=== PATIENT | female | born 1970 | race Caucasian/White ===

== ENCOUNTER 2017-10-29 13:05 | Emergency (ER) | payer OTHER ==
[~2017-10-29] VITALS: Ht 170.2 cm; Wt 71.4 kg
[2017-10-29] MEDS ORDERED: XANA0.25 PO (13:20)
[2017-10-29] MEDS ORDERED: XANA1TAB2 PO (13:20)
[2017-10-29] MEDS ORDERED: DEXI30CA2 PO (13:20)
[2017-10-29 14:13] LABS: BASO # 0.1 10^3/uL (0.0-0.2); BASO % 0.9 % (0.0-1.0); EOS # 0.1 10^3/uL (0.0-0.50); EOS % 1.2 % (0.0-3.0); IMMATURE GRANULOCYTE % 0.1 % (0-0); LYMPH # 2.2 10^3/uL (1.5-4.5); LYMPH % 32.4 % (24.0-44.0); MEAN CORPUSCULAR HEMOGLOBIN 31.7 pg (27.0-33.0); MEAN CORPUSCULAR HGB CONC 33.9 g/dl (32.0-36.5); MEAN CORPUSCULAR VOLUME 93.4 fl (80.0-96.0); MONO # 0.7 10^3/uL (0.0-0.8); MONO % 9.6 % (0.0-5.0); NEUTROPHILS # 3.9 10^3/uL (1.8-7.7); NEUTROPHILS % 55.8 % (36.0-66.0); PLATELET COUNT, AUTOMATED 284 10^3/uL (150-450); RED CELL DISTRIBUTION WIDTH 12.5 % (11.5-14.5); WHITE BLOOD COUNT 6.9 10^3/uL (4.0-10.0)
[2017-10-29 14:39] LABS: ANION GAP 9 MEQ/L (8-16); BLOOD UREA NITROGEN 12 MG/DL (7-18); CALCIUM LEVEL 8.6 MG/DL (8.5-10.1); CARBON DIOXIDE LEVEL 26 MEQ/L (21-32); CHLORIDE LEVEL 105 MEQ/L (98-107); CREATININE FOR GFR 0.65 MG/DL (0.55-1.02); GLOMERULAR FILTRATION RATE > 60.0 (>58); GLUCOSE, FASTING 87 MG/DL (70-105); POTASSIUM SERUM 3.8 MEQ/L (3.5-5.1); SODIUM LEVEL 140 MEQ/L (136-145)
[2017-10-29 14:46] LABS: ALBUMIN 3.9 GM/DL (3.2-5.2); ALBUMIN/GLOBULIN RATIO 1.08 (1.00-1.93); BILIRUBIN,DIRECT 0.2 MG/DL (0.0-0.2); TOTAL PROTEIN 7.5 GM/DL (6.4-8.2)
[2017-10-29] MEDS ORDERED: ISOVUE-370 76% 100ML VIAL (Q9967) As Ordered ONE (14:46)
--- NOTE | 2017-10-29 15:26 | REP ---
CT of the chest with IV contrast, CT pulmonary angiography: There are no emboli in the pulmonary trunk or central pulmonary arteries. There are no emboli in the pulmonary lobe or segment branches. There are no infiltrates or effusions. There are no masses or nodules. There is no mediastinal, hilar or axillary adenopathy. The thoracic aorta is unremarkable. Cardiac size is normal and no pericardial effusion. The visualized upper abdominal contents are unremarkable. Impression: Negative CT study of the chest. No pulmonary emboli. There are no acute cardiopulmonary findings. Signed by Cristhian Paiz MD 10/29/2017 03:17 P
[2017-10-29 15:37] LABS: MAGNESIUM LEVEL 1.9 MG/DL (1.8-2.4)
--- NOTE | 2017-10-29 15:58 | REP ---
CHEST, SINGLE VIEW: No comparison. There is no evidence of acute infiltrate. No pleural effusion is seen. The heart is normal in size. The mediastinal silhouette is unremarkable. The visualized osseous structures are intact. IMPRESSION: No acute pulmonary disease. Signed by Cristhian Crump MD 10/29/2017 04:57 P
[2017-10-29] MEDS ORDERED: GI COCKTAIL 50ML BTL(HYOSCYAMINE/MAALOX/LIDOCAINE VISCOUS)(1:3:1) PO ONE (16:15)
[2017-10-29] MEDS ORDERED: PEPC1TAB4 PO (16:30)
[2017-10-29 16:42] VITALS: BP 144/92
--- NOTE | 2017-10-29 20:12 | ECGEPIP ---
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 Order Number: [id number] Reading MD: Ten Murry Measurements Intervals [place] Rate: 64 P: 10 LA: 119 QRS: 55 QRSD: 93 T: 18 QT: 399 QTc: 414 Interpretive Statements SINUS RHYTHM WITH SHORT LA INTERVAL NSTTW ABNORMALITIES NO PRIORS FOR COMPARISON Electronically Signed On 10-29-2017 20:11:54 EST by Ten Murry
== END 2017-10-29 16:54 | disposition home or self-care (01) ==
LOC: M ED 13:05
DX: R06.00 Dyspnea, unspecified (principal); F41.9 Anxiety disorder, unspecified; K44.9 Diaphragmatic hernia without obstruction or gangrene; I51.9 Heart disease, unspecified; Z82.49 Family history of ischemic heart disease and other diseases of the circulatory system; Z79.899 Other long term (current) drug therapy; Z88.5 Allergy status to narcotic agent
CPT/HCPCS: 36415; 71010; 71275; 80048; 80076; 82550; 82553; 83605; 83735; 84443; 85025; 87040; 93005; 93041; 94760; 99285; Q9967

== ENCOUNTER 2019-12-22 06:07 | Day surgery (SDC) | payer OTHER ==
[2019-12-22] VITALS (8 sets, daily range): BP systolic 124–137; BP diastolic 66–75
[~2019-12-22] VITALS: Ht 170.2 cm; Wt 71.2 kg
[~2019-12-22 06:07] MED LIST: BIOT1CAP2 PO; CART120C PO; DEXI30CA2 PO; HYDR-3713 PO; LR 1,000 ML IV ONE; MULTCAP PO; ONDA4TAB6 PO; PEPC1TAB5 PO; PROBCAP14 PO; QC F0.52 PO; XANA0.25 PO; XANA1TAB2 PO
[2019-12-22 06:44] LABS: HEMATOCRIT 39.8 % (36.0-47.0); HEMOGLOBIN 13.1 g/dl (12.0-15.5); MEAN CORPUSCULAR HEMOGLOBIN 30.8 pg (27.0-33.0); MEAN CORPUSCULAR HGB CONC 32.9 g/dl (32.0-36.5); MEAN CORPUSCULAR VOLUME 93.6 fl (80.0-96.0); PLATELET COUNT, AUTOMATED 305 10^3/uL (150-450); RED BLOOD COUNT 4.25 10^6/uL (4.00-5.40); WHITE BLOOD COUNT 6.1 10^3/uL (4.0-10.0)
[2019-12-22] MEDS ORDERED: ceFAZolin SOD 2 GM in IV 1 EA IV ONE (07:00)
[2019-12-22] MEDS ORDERED: MIDAZOLAM INJ 2 MG/2 ML VIAL (J2250) As Ordered ONE (07:14)
[2019-12-22] MEDS ORDERED: fentaNYL 250 MCG/5 ML INJECTION (J3010) As Ordered ONE (07:14)
[2019-12-22] MEDS ORDERED: ONDANSETRON 4MG/2ML VIAL (J2405) As Ordered ONE (07:15)
[2019-12-22] MEDS ORDERED: ROCURONIUM BROMIDE 50 MG/5 ML VIAL As Ordered ONE ×2 (07:15→08:01)
[2019-12-22] MEDS ORDERED: dexameTHASONE 4 MG/ML 1ML VIAL (J1100) As Ordered ONE (07:15)
[2019-12-22] MEDS ORDERED: LIDOCAINE 2% INJ 100 MG/5 ML SDV (FOR ANES.) As Ordered ONE (07:15)
[2019-12-22] MEDS ORDERED: propofoL 200 MG/20 ML VIAL As Ordered ONE (07:15)
[2019-12-22] MEDS ORDERED: KETOROLAC 60 MG/2 ML VIAL (J1885) As Ordered ONE (08:13)
[2019-12-22] MEDS ORDERED: SUGAMMADEX SODIUM 500 MG/5 ML VIAL (BRIDION) As Ordered ONE (08:13)
[2019-12-22] MEDS ORDERED: ACETAMINOPHEN 1000MG 100ML IV BTL (OFIRMEV) (J0131 PER 10MG) As Ordered ONE (08:13)
[2019-12-22] MEDS ORDERED: HYDROmorphone HCL 2 MG/ML 1ML VIAL (J1170) As Ordered ONE (08:36)
[2019-12-22] MEDS ORDERED: MORPHINE 1MG/ML IN 0.9% NACL 100ML IV BAG As Ordered ONE (09:27)
[2019-12-22] MEDS ORDERED: diphenhydrAMINE INJ 50MG/ML VIAL (J1200) IV PRN (09:45)
[2019-12-22] MEDS ORDERED: LR 1,000 ML IV SCH (09:45)
[2019-12-22] MEDS ORDERED: NALBUPHINE HCL 10 MG/ML AMP (J2300) IV PRN (09:45)
[2019-12-22] MEDS ORDERED: EPIDURAL/PCA KEYS XX PRN (09:45)
[2019-12-22] MEDS ORDERED: oxyCODONE 5MG TAB PO PRN (09:45)
[2019-12-22] MEDS: LR 1,000 ML IV SCH ×2 (09:45→16:16)
[2019-12-22] MEDS ORDERED: MORPHINE 1MG/ML IN 0.9% NACL 100ML IV BAG IV PRN (09:45)
[2019-12-22] MEDS ORDERED: ONDANSETRON 4MG/2ML VIAL (J2405) IV PRN (09:45)
[2019-12-22] MEDS ORDERED: fentaNYL 100 MCG/2 ML INJECTION (J3010) IV PRN (09:45)
[2019-12-22] MEDS ORDERED: NALOXONE INJ 0.4 MG/1 ML VIAL (J2310) IV PRN (09:45)
--- NOTE | 2019-12-22 12:10 | RO ---
DATE OF SURGERY: 12/22/2019 PREOPERATIVE DIAGNOSIS/INDICATION FOR SURGERY: Pain, bleeding, and dyspareunia. POSTOPERATIVE DIAGNOSIS: Pain, bleeding, and dyspareunia. PROCEDURE: Laparoscopic assisted vaginal hysterectomy (LAVH) with bilateral salpingo-oophorectomy (BSO) some minor incidental lysis of adhesions. SURGEON: Dr. Blanchard DEBT AND BUDGET COUNSELOR: None. ANESTHESIA: General endotracheal anesthesia. FINDINGS: As expected. BRIEF DESCRIPTION OF PROCEDURE AND FINDINGS: Phuong was brought to the operating room where sufficient general endotracheal anesthesia was induced. She was prepped, draped and positioned in the usual sterile fashion. The uterine manipulator was placed after the uterus was sounded to 8 and the Bass with the ability to backfill was placed. Attention was then turned to the abdomen. A transverse semilunar incision was made just below the umbilicus. Sharp and blunt dissection continued through the subcutaneous tissues to the level of the rectus fascia, which was elevated with Laura clamps, transversely incised and #0 Vicryl retention sutures placed. The peritoneum was then under direct visualization in open laparoscopic technique and the Hernandez cannula placed and secured in place with the #0 Vicryl retention sutures. CO2 insufflation was then begun. After adequate CO2 insufflation, the peritoneal cavity was visualized. There were no excrescences, ascites, nor exudate and there were normal shiny peritoneal surfaces throughout. Over the descending colon there were some minor film adhesions to the to the pelvic sidewall and to the abdominal sidewall and these caused the bowel to cover the infundibulopelvic ligament on the left side, and so the cold scissors were just used to take these down. With this manipulation and freeing of those adhesions the intestine was far more mobile and with Trendelenburg we were able to isolate the infundibulopelvic ligaments bilaterally. We then through the operative port of the scope used the #45 Enseal to cauterize and transect the infundibulopelvic ligaments bilaterally and worked our way through the superior aspect of the broad ligament from cephalad to caudad, and then cauterized and transected the round ligament and then dissected the inferior aspect of the broad ligament switching over to the cold scissors and then continuing this dissection for the bladder flap anteriorly and working medially enough posteriorly that we were over the uterosacral so as to free up the mobility of the ureters bilaterally. Pictures were taken to document our progress, and of course the bladder was backfilled as needed to clearly delineate its location so that we were sure to avoid any bladder injury. After freeing both tubes and both rounds and dissected to the broad ligament and creating the bladder flap, we turned our attention to the vaginal work. The instruments were removed above but of course of the trocar left in place. Then, working vaginally, the uterine manipulator was removed. Single-tooth tenacula were placed in the anterior and posterior aspect of the cervix. Weighted retractor and an anterior Carlisle were placed, and then a circumferential incision was made around the base of the cervix. The cardinal ligaments were then isolated, clamped, transected and ligated bilaterally using the Casa'[place]edesma clamps, which were used throughout this portion of the case, and #0 Vicryl, which was also used throughout this portion of the case. We then clamped, transected and ligated the uterosacral and secured them for later re-securing to the cuff because the patient already had some mobility. So, we were careful about re-securing them of course. We then dissected anteriorly to join up with our anterior dissection that we had already made above and then carefully clamped, transected and ligated our way through the uterine vasculature up along the lateral aspect of the uterus until it and the attached ovaries and tubes could be delivered. The pedicles were carefully re-evaluated. There was one on the right side oozy and that was oversewn again with good hemostasis resulting, and of course we re-secured the uterosacral to the cuff and then took angle stitches of #0 Vicryl and then closed the cuff with a running locked stitch of #0 Vicryl with good approximation and hemostasis achieved. Following this with continued clear urine and good hemostasis stripped off my outer gloves and moved above to close the umbilical wound. #0 Vicryl retention sutures were used to close the fascia and then the skin was closed with #3-0 Vicryl in a subcuticular stitch with dry sterile dressing then applied. Estimated blood loss for the procedure is about 60 mL. Fluid replacement was crystalloid. Complications: None. Condition and Disposition: Phuong tolerated the procedure well and was recovering in the recovery room in good condition.
[2019-12-22] MEDS: IBUPROFEN 600 MG TAB PO PRN (21:06)
[2019-12-23] VITALS: BP 130/74
[2019-12-23] MEDS: LR 1,000 ML IV SCH (00:05)
[2019-12-23] MEDS: IBUPROFEN 600 MG TAB PO PRN ×2 (03:10→09:42)
[2019-12-23 04:00] VITALS: BP 118/67
[2019-12-23] MEDS ORDERED: NORCO, ANEXSIA 5/325MG TABLET (HYDROcodone/ACETAMINOPHEN) PO PRN (06:00)
[2019-12-23 07:10] LABS: HEMATOCRIT 34.9 % (36.0-47.0); HEMOGLOBIN 11.5 g/dl (12.0-15.5); MEAN CORPUSCULAR HEMOGLOBIN 30.7 pg (27.0-33.0); MEAN CORPUSCULAR VOLUME 93.3 fl (80.0-96.0); PLATELET COUNT, AUTOMATED 269 10^3/uL (150-450); RED BLOOD COUNT 3.74 10^6/uL (4.00-5.40); WHITE BLOOD COUNT 9.2 10^3/uL (4.0-10.0)
[2019-12-23 08:00] VITALS: BP 107/58
[2019-12-23] MEDS ORDERED: PANTOPRAZOLE 20 MG TAB PO SCH (09:00)
[2019-12-23] MEDS ORDERED: IBUP200C33 PO (09:35)
== END 2019-12-23 10:00 | disposition home or self-care (01) ==
LOC: M SDC 06:07 → M PED 10:42 → M SDC 12-23 10:00
PROVIDERS: ATTEND Obstetrics & Gynecology
DX: R10.9 Unspecified abdominal pain (principal); N94.10 Unspecified dyspareunia; N72 Inflammatory disease of cervix uteri; N80.0 Endometriosis of uterus; K44.9 Diaphragmatic hernia without obstruction or gangrene; K21.9 Gastro-esophageal reflux disease without esophagitis; F41.9 Anxiety disorder, unspecified; G43.909 Migraine, unspecified, not intractable, without status migrainosus; Z87.891 Personal history of nicotine dependence; Z79.899 Other long term (current) drug therapy; Z88.5 Allergy status to narcotic agent
CPT/HCPCS: 36415; 58571; 84702; 85027; 86850; 86900; 86901; 88307; 96360; 96361; J0131; J0690; J1100; J1170; J1885; J2250; J2405; J3010

== ENCOUNTER → 2020-01-23 | Outpatient (REF) | payer OTHER ==
[~2020-01-23] MED LIST changes: +IBUP200C33 PO; -LR 1,000 ML IV ONE
[2020-01-23 15:42] LABS: BASO # 0.1 10^3/uL (0.0-0.2); BASO % 0.8 % (0.0-1.0); EOS # 0.1 10^3/uL (0.0-0.5); EOS % 1.7 % (0.0-3.0); HEMATOCRIT 41.6 % (36.0-47.0); HEMOGLOBIN 13.8 g/dl (12.0-15.5); LYMPH # 2.3 10^3/uL (1.5-5.0); LYMPH % 34.9 % (24.0-44.0); MEAN CORPUSCULAR HGB CONC 33.2 g/dl (32.0-36.5); MEAN CORPUSCULAR VOLUME 93.5 fl (80.0-96.0); MONO # 0.6 10^3/uL (0.0-0.8); MONO % 8.6 % (0.0-5.0); NEUTROPHILS # 3.5 10^3/uL (1.5-8.5); NEUTROPHILS % 53.7 % (36.0-66.0); PLATELET COUNT, AUTOMATED 331 10^3/uL (150-450); RED BLOOD COUNT 4.45 10^6/uL (4.00-5.40); WHITE BLOOD COUNT 6.5 10^3/uL (4.0-10.0)
[2020-01-23 15:54] LABS: ALBUMIN 4.4 GM/DL (3.2-5.2); ALT/SGPT 42 U/L (12-78); BILIRUBIN,TOTAL 0.7 MG/DL (0.2-1.0); BLOOD UREA NITROGEN 13 MG/DL (7-18); CALCIUM LEVEL 9.8 MG/DL (8.5-10.1); CARBON DIOXIDE LEVEL 30 MEQ/L (21-32); CHLORIDE LEVEL 104 MEQ/L (98-107); CREATININE FOR GFR 0.73 MG/DL (0.55-1.30); FREE T4 0.98 NG/DL (0.76-1.46); GLOMERULAR FILTRATION RATE > 60.0 (>58); GLUCOSE, FASTING 97 MG/DL (70-100); POTASSIUM SERUM 4.3 MEQ/L (3.5-5.1); SODIUM LEVEL 139 MEQ/L (136-145); TOTAL PROTEIN 7.6 GM/DL (6.4-8.2)
== END ==
LOC: M LABNEURO 15:14
PROVIDERS: ATTEND Psychiatry & Neurology Neurology
DX: R00.0 Tachycardia, unspecified (principal)

== ENCOUNTER 2020-07-02 13:00 | Day surgery (SDC) | payer OTHER ==
[2020-07-02] MEDS ORDERED: propofoL 200 MG/20 ML VIAL As Ordered ONE (14:32)
[2020-07-02] MEDS ORDERED: LIDOCAINE 2% 100MG/5ML SDV (FOR ANES.) As Ordered ONE (14:32)
[2020-07-02] MEDS ORDERED: fentaNYL 100 MCG/2 ML INJECTION (J3010) As Ordered ONE (14:33)
--- NOTE | 2020-07-25 11:35 | ROOR ---
Patient Name: Phuong Goss Procedure Date: 07/02/2020 11:47 AM Date of : 1970 Age: 49 Room: [facility] Gender: Female Note Status: Physician Interventional Cardiologist Override Procedure: Upper GI endoscopy Indications: Functional Dyspepsia, Heartburn Providers: Jeffery Arroyo MD Referring MD: Jennifer Smiley MD Requesting Provider: Medicines: Monitored Anesthesia Care Complications: No immediate complications. Procedure: Pre-Anesthesia Assessment: - Prior to the procedure, a History and Physical was performed, and patient medications and allergies were reviewed. The patient is competent. The risks and benefits of the procedure and the sedation options and risks were discussed with the patient. All questions were answered and informed consent was obtained. Patient identification and proposed procedure were verified by the physician, the nurse and the anesthesiologist in the procedure room. Mental Status Examination: alert and oriented. Airway Examination: normal oropharyngeal airway and neck mobility. Respiratory Examination: clear to auscultation. CV Examination: normal. Prophylactic Antibiotics: The patient does not require prophylactic antibiotics. Prior Anticoagulants: The patient has taken no previous anticoagulant or antiplatelet agents. ASA Grade Assessment: II - A patient with mild systemic disease. After reviewing the risks and benefits, the patient was deemed in satisfactory condition to undergo the procedure. The anesthesia plan was to use monitored anesthesia care (MAC). Immediately prior to administration of medications, the patient was re-assessed for adequacy to receive sedatives. The heart rate, respiratory rate, oxygen saturations, blood pressure, adequacy of pulmonary ventilation, and response to care were monitored throughout the procedure. The physical status of the patient was re-assessed after the procedure. The Endoscope was introduced through the mouth, and advanced to the second part of duodenum. The upper GI endoscopy was accomplished without difficulty. The patient tolerated the procedure well. Findings: The examined esophagus was normal. The Z-line was regular and was found in the distal esophagus. Scattered mild inflammation characterized by erythema and granularity was found in the gastric antrum. Biopsies were taken with a cold forceps for Helicobacter pylori testing. Verification of patient identification for the specimen was done by the physician and nurse using the patient's name, date and medical record number. Estimated blood loss was minimal. The duodenal bulb and second portion of the duodenum were normal. Biopsies for histology were taken with a cold forceps for evaluation of celiac disease. Impression: - Normal esophagus. - Z-line regular, in the distal esophagus. - Gastritis. Biopsied. - Normal duodenal bulb and second portion of the duodenum. Biopsied. Recommendation: - Patient has a contact number available for emergencies. The signs and symptoms of potential delayed complications were discussed with the patient. Return to normal activities tomorrow. Written discharge instructions were provided to the patient. - High fiber diet. - Continue present medications. - Await pathology results. - Follow an antireflux regimen. - Telephone GI clinic for pathology results in 2 weeks. - Return to primary care physician. Jeffery Arroyo MD 07/02/2020 2:46:15 PM Number of Addenda: 0 Note Initiated On: 07/02/2020 11:47 AM Estimated Blood Loss: Estimated blood loss was minimal.
== END 2020-07-02 15:15 | disposition home or self-care (01) ==
LOC: M SDC 13:00
PROVIDERS: ATTEND Internal Medicine Gastroenterology
DX: K29.70 Gastritis, unspecified, without bleeding (principal); K30 Functional dyspepsia; I47.1 Supraventricular tachycardia; K44.9 Diaphragmatic hernia without obstruction or gangrene; Z87.891 Personal history of nicotine dependence; Z79.891 Long term (current) use of opiate analgesic; Z79.899 Other long term (current) drug therapy; Z88.5 Allergy status to narcotic agent; Z88.8 Allergy status to other drugs, medicaments and biological substances; Z91.013 Allergy to seafood
CPT/HCPCS: 43239; 88305; J3010

== ENCOUNTER → 2024-01-13 | Outpatient (REF) | payer OTHER | LOC: M SFHCWAGY 13:29 | PROVIDERS: ATTEND Nurse Practitioner Family | DX: Z12.72 Encounter for screening for malignant neoplasm of vagina (principal); Z11.51 Encounter for screening for human papillomavirus (HPV) | CPT/HCPCS: 87624; G0123 ==

== ENCOUNTER 2024-02-12 07:25 | Day surgery (SDC) | payer OTHER ==
[~2024-02-12] VITALS: Ht 170.2 cm; Wt 68.5 kg
[~2024-02-12 07:25] MED LIST changes: +ESTR2TAB3 PO; +PANT40TA29 PO; +ZOLO100T PO
[2024-02-12] MEDS: NS 1,000 ML IV ONE (08:01)
[2024-02-12] MEDS ORDERED: fentaNYL 100 MCG/2 ML INJECTION As Ordered ONE (08:23)
[2024-02-12] MEDS ORDERED: LIDOCAINE 2% 100MG/5ML SDV (FOR ANES.) As Ordered ONE (08:58)
[2024-02-12] MEDS ORDERED: propofoL 200 MG/20 ML VIAL As Ordered ONE (08:58)
[2024-02-12 09:17] VITALS: TEMP 98.3
[2024-02-12 09:32] VITALS: BP 127/66; O2SAT 100
== END 2024-02-12 09:44 | disposition home or self-care (01) ==
LOC: M OPP 07:25
PROVIDERS: ATTEND Internal Medicine Gastroenterology
DX: K64.8 Other hemorrhoids (principal); K64.4 Residual hemorrhoidal skin tags; K52.89 Other specified noninfective gastroenteritis and colitis; R19.4 Change in bowel habit; K29.70 Gastritis, unspecified, without bleeding; K22.9 Disease of esophagus, unspecified; R10.13 Epigastric pain; Z79.1 Long term (current) use of non-steroidal anti-inflammatories (NSAID); Z79.818 Long term (current) use of other agents affecting estrogen receptors and estrogen levels; Z79.899 Other long term (current) drug therapy; Z88.5 Allergy status to narcotic agent
CPT/HCPCS: 43239; 45380; 88305; J3010

== ENCOUNTER → 2024-12-02 | Outpatient (CLI) | payer OTHER ==
[~2024-12-02] MED LIST changes: +ONDA-282 PO; -ONDA4TAB6 PO
== END ==
LOC: M PAIN 08:00
PROVIDERS: ATTEND Nurse Practitioner Family
DX: G89.29 Other chronic pain (principal); M54.2 Cervicalgia; G43.909 Migraine, unspecified, not intractable, without status migrainosus; K21.9 Gastro-esophageal reflux disease without esophagitis; Z87.891 Personal history of nicotine dependence; Z79.899 Other long term (current) drug therapy; Z88.5 Allergy status to narcotic agent; Z88.8 Allergy status to other drugs, medicaments and biological substances; Z91.013 Allergy to seafood

== ENCOUNTER → 2025-11-10 | Outpatient (CLI) | payer OTHER ==
[2025-11-10 12:58] LABS: BASO # 0.0 10^3/uL (0.0-0.2); BASO % 0.6 % (0.0-1.0); EOS # 0.1 10^3/uL (0.0-0.5); EOS % 1.8 % (0.0-3.0); LYMPH # 1.9 10^3/uL (1.5-5.0); LYMPH % 31.0 % (24.0-44.0); MONO # 0.5 10^3/uL (0.0-0.8); MONO % 7.4 % (2.0-8.0); NEUTROPHILS # 3.7 10^3/uL (1.5-8.5); NEUTROPHILS % 59.0 % (36.0-66.0); PLATELET COUNT, AUTOMATED 260 10^3/uL (150-450)
[2025-11-10 13:37] LABS: ALT/SGPT 25 U/L (7.0-40); AST/SGOT 29 U/L (<34); CALCIUM LEVEL 8.3 MG/DL (8.5-10.1); CARBON DIOXIDE LEVEL 25 MMOL/L (20-31); CHLORIDE LEVEL 106 MMOL/L (98-107); CREATININE FOR GFR 0.70 MG/DL (0.55-1.30); GLOMERULAR FILTRATION RATE > 90.0 (>51); IRON (FE) 103 UG/DL (50-170); POTASSIUM SERUM 3.7 MMOL/L (3.5-5.1); SODIUM LEVEL 141 MMOL/L (136-145)
[2025-11-10 13:38] LABS: FREE T4 0.98 NG/DL (0.89-1.76)
[2025-11-10 13:39] LABS: THYROXINE (T4) 6.6 UG/DL (4.5-10.9)
[2025-11-10 13:42] LABS: T UPTAKE 26.4 % (22.5-37.0)
[2025-11-13 11:02] LABS: VITAMIN E(ALPHA TOCOPHEROL) 19.8 mg/L (5.7-19.9); VITAMIN E(GAMMA TOCOPHEROL) < 1.0 mg/L (<=4.3)
[2025-11-14 04:58] LABS: VITAMIN B6,PYRIDOXAL PHOSPHATE 10.7 ng/mL (2.1-21.7)
[2025-11-14 18:08] LABS: VITAMIN B1 LEVEL WHOLE BLOOD 132 nmol/L (78-185)
== END ==
LOC: M LAB 12:17 → M PLALAB 12:17
PROVIDERS: ATTEND Psychiatry & Neurology Neurology
DX: E61.1 Iron deficiency (principal); E53.8 Deficiency of other specified B group vitamins; G25.81 Restless legs syndrome; E07.9 Disorder of thyroid, unspecified